=== PATIENT | male | born 1945 | race Caucasian/White ===

== ENCOUNTER → 2017-10-28 | Outpatient (CLI) | payer MEDICARE ==
[~2017-10-28] MED LIST: ACETAM PO; BABY ASPIRIN81 MG PO; CALCIUM D3; GADOBENATE DIMEGLUMINE 1 ML IV ONE; HYDROCHLOROTHIA25 MG PO; HYDROCODONE PO; IOPAMIDOL 300 MG/ML 15ML VIAL IT ONE; METOPROLOL TAR100 MG PO; MULTIVITAMIN; PIROXICAM20 MG PO; STOOL SOFTENER100 M1 PO; VICODIN 5-5001 EACH PO
[2017-10-28 08:23] LABS: BLOOD UREA NITROGEN 15 mg/dL (7-26); BUN/CREATININE RATIO 15 (6-25); CREATININE, SERUM 1.02 mg/dL (0.72-1.25); EST GLOMERULAR FILTRATION RATE > 60 ML/MIN (60-)
--- NOTE | 2017-10-28 11:37 | Diagnostic Imaging Report ---
TECHNIQUE: Magnetic resonance imaging of the LEFT SHOULDER was performed after intra-articular injection of contrast. COMPARISON: None available. HISTORY: Pain FINDINGS: MUSCLES AND TENDONS: Rotator Cuff: Tendons: Full thickness tear of the supraspinatus from the humeral insertion. Additional partial-thickness articular sided tearing extending into the infraspinatus tendon with retraction of the deep fibers approximately 2.5 cm. Muscles: No focal muscle atrophy. Biceps Tendon: The long head of the biceps tendon is within the bicipital groove. Fluid around the tendon secondary to the arthrogram. GLENOHUMERAL JOINT: Posterior subluxation of the humeral head. Glenoid Labrum: Superior and posterior labral tearing. Articular Cartilage: High-grade cartilage loss AC JOINT AND ACROMION: No hypertrophic degenerative changes of the acromioclavicular joint. Subacromial spurring. Bone: No focal or infiltrative bone marrow replacing abnormality. No acute fracture. Soft Tissues: Otherwise, the soft tissues appear unremarkable. IMPRESSION: Full-thickness tear of the anterior supraspinatus from the humeral insertion. No atrophy. 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 Signed by: Dr. Keon Kelley M.D. on 10/28/2017 11:33 AM
--- NOTE | 2017-10-28 11:50 | Diagnostic Imaging Report ---
PROCEDURE:INJECTION ARTHROGRAM SHOULDER COMPARISON:None. INDICATIONS:Left shoulder pain. FINDINGS:The patient was placed supine on the fluoroscopy table. The left shoulder was prepped and draped in the usual sterile fashion. 1% lidocaine was infused into the subcutaneous tissues for local anesthesia. Utilizing direct fluoroscopic guidance, a 25 gauge spinal needle was advanced into the left glenohumeral joint. 5 cc of Isovue-200 M. were infused to confirm proper position within the glenohumeral joint. 10 cc of sterile saline with Magnevist 0.1 mg were infused. Upon completion of the procedure, the needle was removed. The contrast was mobilized within the joint space utilizing passive range of motion. A sterile dressing was applied. The patient tolerated the procedure well. Patient was transferred to the MRI suite for further imaging in stable unchanged condition. CONCLUSION:Successful fluoroscopically guided contrast injection into the left shoulder for an MRI arthrogram. Dictated by: Prabhakar Gudino M.D. on 10/28/2017 at 11:50 Electronically approved by: Prabhakar Gudino M.D. on 10/28/2017 at 11:50
== END ==
LOC: DX 07:24
PROVIDERS: ATTEND Specialist
DX: S43.432D Superior glenoid labrum lesion of left shoulder, subsequent encounter (principal)
CPT/HCPCS: 23350; 36415; 73222; 77002; 82565; 84520; Q9967

== ENCOUNTER → 2019-02-13 | Outpatient (CLI) | payer MEDICARE ==
[~2019-02-13] MED LIST changes: +ALLOPURINOL100 MG PO; +ALPRAZOLAM0.25 MG PO; +ATORVASTATIN CA20 MG PO; +CALCIUM CARB PO; +CLOPIDOGREL75 MG PO; +DICLOFENAC POTA50 MG PO; +DOCUSATE SODIU100 MG PO; -GADOBENATE DIMEGLUMINE 1 ML IV ONE; -IOPAMIDOL 300 MG/ML 15ML VIAL IT ONE; +ISOSORBIDE MONO20 MG PO; +LORATADINE10 MG PO; +LOSARTAN POTAS100 MG PO; +MELATONIN3 MG PO; +METOPROLOL SUCC50 MG PO; +METRONIDAZOLE GEL TOP; +PANTOPRAZOLE SO40 MG PO; +REGADENOSON 0.4 MG/5 ML SYR IV ONE; +VITD PO
--- NOTE | 2019-02-17 13:11 | Myoview Stress Test ---
DATE OF STUDY: 02/13/2019 11:04:00 Stress Test - Treadmill ONLY Thank you, Dr. Shaji Staton for this nuclear interpretation consultation. This stress test is supervised by Dr. Shaji Staton. Nuclear gated myocardial perfusion scan performed as per protocol at Nuclear Medicine Lab at [facility]. Lexiscan injected 0.4 mg intravenously stress agent. Myoview injected 11 mCi for resting protocol and 33 mCi for stress protocol. IMPRESSION: 1. Inferior wall scar noted. 2. Left ventricular ejection fraction 55%. Abnormal study with inferior wall scar. MD YASSINE Monsivais/GENL /[id number]
== END ==
LOC: NM 10:51
PROVIDERS: ATTEND Internal Medicine Cardiovascular Disease
DX: I25.119 Atherosclerotic heart disease of native coronary artery with unspecified angina pectoris (principal)
CPT/HCPCS: 78452; 93017; A9502; J2785

== ENCOUNTER 2019-02-26 09:53 | Observation (INO) | payer MEDICARE ==
[~2019-02-26] VITALS: Ht 179.1 cm; Wt 130.2 kg
[2019-02-26] VITALS (9 sets, daily range): BP systolic 97–139; BP diastolic 59–76
[~2019-02-26 09:53] MED LIST changes: -REGADENOSON 0.4 MG/5 ML SYR IV ONE
--- OUTSIDE RECORDS SUMMARY | 2019-02-26 10:09 | XMS REPORT ---
Author Author [facility] Address Unknown Phone Unavailable Care Team Providers Care Manager Sign Name Role Phone GELY HARGROVE Unavailable Unavailable ANA RODRIGUEZ Unavailable Unavailable Payers Payer Name Policy Type Policy Number Effective Date Expiration Date Problems This patient has no known problems. Allergies, Adverse Reactions, Alerts Allergy Name Allergy Type Status Severity Reaction(s) Onset Date Inactive Date Treating Clinician Comments No Known Allergies DA Active U 2016-08-04 00:00:00 Medications This patient has no known medications. Results Test Description Test Time Test Comments Text Results Atomic Results Result Comments Stress Test - Treadmill ONLY 2019-02-17 11:42:00 [place] [address] Patient Name : RAMIREZ DAVID MR #: [id number] : 1945 Age/Sex: 73/M Adm Physician : GELY HARGROVE MD Admit Date : 02/13/19 [facility] : [facility] Room[facility]Bed : REPORT: Myoview Stress Test DATE OF STUDY: 02/13/2019 11:04:00 Stress Test - Treadmill ONLY Thank you, Dr. Gely Hargrove for this nuclear interpretation consultation. This stress test is supervised by Dr. Gely Hargrove. Nuclear gated myocardial perfusion scan performed as per protocol at Nuclear Medicine Lab at [facility]. Lexiscan injected 0.4 mg intravenously stress agent. Myoview injected 11 mCi for resting protocol and 33 mCi for stress protocol. IMPRESSION: 1. Inferior wall scar noted. 2. Left ventricular ejection fraction 55%. Abnormal study with inferior wall scar. Tim Nunn MD PVJoe/ISMAEL /[id number] Signature Date Dictated By: TIM NUNN MD Transcribed By: ISMAEL on 02/17/19 <Electronically signed by TIM NUNN MD><<Signature on File>>02/24/19 6142 COPY TO: MRI SHOULDER LEFT W [place] [address] Patient Name: RAMIREZ DAVID MR #: [id number] : 1945 Age/Sex: 72/M Req #: [id number] Adm Physician: Ordered by: ANA RODRIGUEZ MD Report #: [id number] Location: DX Room/Bed: Procedure: [id number] MRI/MRI SHOULDER LEFT W Exam Date: Exam Time: REPORT STATUS: Signed TECHNIQUE: Magnetic resonance imaging of the LEFT SHOULDER was performed after intra-articular injection of contrast. COMPARISON: None available. HISTORY: Pain FINDINGS: MUSCLES AND TENDONS: Rotator Cuff: Tendons: Full thickness tear of the supraspinatus from the humeral insertion. Additional partial-thickness articular sided tearing extending into the infraspinatus tendon with retraction of the deep fibers approximately 2.5 cm. Muscles: No focal muscle atrophy. Biceps Tendon: The long head of the biceps tendon is within the bicipital groove. Fluid around the tendon secondary to the arthrogram. GLENOHUMERAL JOINT: Posterior subluxation of the humeral head. Glenoid Labrum: Superior and posterior labral tearing. Articular Cartilage: High-grade cartilage loss AC JOINT AND ACROMION: No hypertrophic degenerative changes of the acromioclavicular joint. Subacromial spurring. Bone: No focal or infiltrative bone marrow replacing abnormality. No acute fracture. Soft Tissues: Otherwise, the soft tissues appear unremarkable. IMPRESSION: Full-thickness tear of the anterior supraspinatus from the humeral insertion. No atrophy. 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 Signed by: Dr. Merry Valdes M.D. on 10/28/2017 11:33 AM Dictated By: MERRY VALDES MD 1133 Transcribed By: RAJESH on 10/28/17 1133 COPY TO: ANA RODRIGUEZ MD FLURO GUIDE NEEDLE PLRAMIREZ/LOC DWAYNE [place] [address] Patient Name: RAMIREZ DAVID MR #: [id number] : 1945 Age/Sex: 72/M Req #: [id number] Adm Physician: Ordered by: ANA RODRIGUEZ MD Report #: [id number] Location: DX Room/Bed: Procedure: [id number] DX/FLURO GUIDE NEEDLE PLMT/LOC DE Exam Date: Exam Time: REPORT STATUS: Signed PROCEDURE: INJECTION ARTHROGRAM SHOULDER COMPARISON: None. INDICATIONS: Left shoulder pain. FINDINGS: The patient was placed supine on the fluoroscopy table. The left shoulder was prepped and draped in the usual sterile fashion. 1% lidocaine was infused into the subcutaneous tissues for local anesthesia. Utilizing direct fluoroscopic guidance, a 25 gauge spinal needle was advanced into the left glenohumeral joint. 5 cc of Isovue-200 M. were infused to confirm proper position within the glenohumeral joint. 10 cc of sterile saline with Magnevist 0.1 mg were infused. Upon completion of the procedure, the needle was removed. The contrast was mobilized within the joint space utilizing passive range of motion. A sterile dressing was applied. The patient tolerated the procedure well. Patient was transferred to the MRI suite for further imaging in stable unchanged condition. CONCLUSION: Successful fluoroscopically guided contrast injection into the left shoulder for an MRI arthrogram. Dictated by: Gregorio Mancini M.D. on 10/28/2017 at 11:50 Electronically approved by: Gregorio Mancini M.D. on 10/28/2017 at 11:50 Dictated By: GREGORIO MANCINI MD 1150 Transcribed By: BRIELLE on 10/28/17 1150 COPY TO: ANA RODRIGUEZ MD INJECTION ARTHROGRAM SHOULDER [place] [address] Patient Name: RAMIREZ DAVID MR #: [id number] : 1945 Age/Sex: 72/M Req #: [id number] Adm Physician: Ordered by: ANA RORDIGUEZ MD Report #: [id number] Location: DX Room/Bed: Procedure: [id number] IR/INJECTION ARTHROGRAM SHOULDER Exam Date: 10/28/17 Exam Time: 0850 REPORT STATUS: Signed PROCEDURE: INJECTION ARTHROGRAM SHOULDER COMPARISON: None. INDICATIONS: Left shoulder pain. FINDINGS: The patient was placed supine on the fluoroscopy table. The left shoulder was prepped and draped in the usual sterile fashion. 1% lidocaine was infused into the subcutaneous tissues for local anesthesia. Utilizing direct fluoroscopic guidance, a 25 gauge spinal needle was advanced into the left glenohumeral joint. 5 cc of Isovue-200 M. were infused to confirm proper position within the glenohumeral joint. 10 cc of sterile saline with Magnevist 0.1 mg were infused. Upon completion of the procedure, the needle was removed. The contrast was mobilized within the joint space utilizing passive range of motion. A sterile dressing was applied. The patient tolerated the proc edure well. Patient was transferred to the MRI suite for further imaging in stable unchanged condition. CONCLUSION: Successful fluoroscopically guided contrast injection into the left shoulder for an MRI arthrogram. Dictated by: Gregorio Mancini M.D. on 10/28/2017 at 11:50 Electronically approved by: Gregorio Mancini M.D. on 10/28/2017 at 11:50 Dictated By: GREGORIO MANCINI MD 1150 Transcribed By: BRIELLE on 10/28/17 1150 COPY TO: ANA RODRIGUEZ MD
[2019-02-26] MEDS ORDERED: LORAZEPAM INJ 2 MG/ML VIAL ONE (10:31)
[2019-02-26] MEDS ORDERED: FAMOTIDINE 20 MG TAB ONE (10:32)
[2019-02-26] MEDS ORDERED: FENTANYL CITRATE/PF 100MCG/2 ML INJ ONE (12:55)
[2019-02-26] MEDS ORDERED: MIDAZOLAM HCL 2 MG/2 ML VIAL ONE (12:55)
[2019-02-26] MEDS ORDERED: LIDOCAINE HCL 2% LOCAL 20 ML VIAL ONE (12:55)
[2019-02-26] MEDS ORDERED: SODIUM CHLORIDE 0.9% 1000ML 1,000 ML ONE (12:56)
[2019-02-26] MEDS ORDERED: IOPAMIDOL 370 MG/ML 200 ML INFUS..BTL INJ ONE (12:56)
[2019-02-26] MEDS ORDERED: HEPARIN SOD/SOD CHLORIDE 2,000 ML ONE (12:56)
[2019-02-26] MEDS ORDERED: CLONIDINE HCL 0.1 MG TAB ONE (15:05)
--- NOTE | 2019-02-26 15:30 | NUR ---
recd pt from mobile lab technician via stretcher aaox3,drsg to lt groin cdI intact,no bleeding noted ,soft to touch.vs-137/74,70,20,96.7
[2019-02-26] MEDS ORDERED: CLONIDINE HCL 0.1 MG TAB PO PRN (16:15)
[2019-02-26] MEDS ORDERED: HYDROCODONE/APAP 5MG-325MG TAB PO PRN (16:15)
--- NOTE | 2019-02-26 19:00 | NUR ---
Patient visited in room during nursing rounds. Patient alert and oriented x3. S/P left heart catheterization. Dressing on left groin (2x2 gauze with tegaderm) intact, clean and dry. Site feels soft and no hematoma noted. Pt laying flat in bed till 2100 per protocol and MD (Dr. Staton) orders. Will call Dr. Staton after 2100 to report pt current condition and to obtain possible discharge orders. Call banks within reach. Will monitor pt closely.
--- NOTE | 2019-02-26 20:00 | NUR ---
Pt resting in bed. V/S stable. No distress or discomfort noted.
--- NOTE | 2019-02-26 21:10 | NUR ---
Patient in stable condition. Bed rest done and pt got up and out of bed to use restroom. Pt states he feels fine. Dressng on incision site (left groin) appear clean and dry. Will page Dr. Staton to obtain possible d/c orders.
--- NOTE | 2019-02-26 21:30 | NUR ---
Received call back from Dr. Staton and informed MD of patient current condition (stable and in no pain or discomfort). specifically states pt ok to go home as long as patient as much as possible would keep his left leg rested and straight in bed or in recliner chair or sofa till 8AM tomorrow (02/27/19). stated ok to continue all home medications and would like to see pt at his clinic one week from today (i.e. Mar 05, 2019).
--- NOTE | 2019-02-26 22:06 | NUR ---
Pt signed discharge papers and understood discharge instructions (Care of incision site, call tomorrow Dr. Staton to set up appointment in 1 week). Pt escorted via wheelchair in stable condition. Pt went home via private vehicle with friend (Davi).
--- NOTE | 2019-02-27 04:38 | Operative Report ---
DATE OF PROCEDURE: 02/26/2019 SURGEON: Shaji Staton MD DIAGNOSES: 1. Coronary artery disease with angina pectoralis and abnormal Lexiscan study. 2. Hypertension. 3. Diabetes mellitus. INDICATIONS: This 73-year-old patient developed recent onset of resting nocturnal and exertional angina pectoralis and chest pain syndrome. He also had episodes of anxiety and increased stress, which was treated by Dr. Burks with Xanax and this helped the patient with his anxiety and stress syndrome symptoms. Dr. Burks referred the patient kindly to me for evaluation and performed nuclear stress test, which was abnormal and the patient is now admitted for diagnostic cardiac catheterization. The patient had previous intervention with placement of coronary stent into the left anterior descending branch. PROCEDURE: 1. Selective coronary angiography. 2. Left ventricular angiogram. ANESTHESIA: With local anesthetic to the left groin area and intravenous moderate sedation with 1 mg of Versed and 25 mcg of fentanyl. DESCRIPTION OF PROCEDURE: After usual prepping and draping, the left inguinal area was infiltrated with local lidocaine. The left femoral artery was then punctured percutaneously and a 6-Uzbek arterial sheath was placed in a modified Seldinger technique. Selective cardiac angiography was performed by using modified Magalie catheter. A 6-Uzbek angled pigtail catheter was utilized for recording of hemodynamics and left ventricular angiogram in the 30-degree SOLARES projection. The pigtail catheter was then also utilized for abdominal arthrography by placing it at the renal level. After completion of procedure, a diagnostic contrast injection was made in the left groin area which, however, indicated that a closure devise is not applicable since the takeoff of the profunda branch was right at the site of cannulation of left femoral artery. Therefore, manual compression was applied with using hemostatic patch and after adequate hemostasis was achieved, dressing was applied and the patient transferred to the observation area in stable condition. There were no complications. The procedure was well tolerated. FINDINGS OF THE CARDIAC CATHETERIZATION: The left ventricular pressure was 138 mmHg. The aortic pressure was 140/78 with a mean of 110 mmHg. There was no gradient across the aortic valve. The left ventricular antacid pressure was elevated with 16, peaking at 28 mmHg. The left main coronary artery showed about 20% eccentric plaque at the bifurcation and also was calcified as was the proximal LAD, which also had about 20% ostial stenosis. The previously placed stent in the mid LAD was fully patent without any evidence of stenosis. The 1st diagonal branch was large and the 2nd diagonal branch was of medium size. The left circumflex artery also showed some calcified plaques, but was large and did not show any stenosis. The right coronary artery also showed extensive calcifications and diffuse plaques amounting to about 10% to 20% stenosis along the proximal and midportion and about a certain percent stenosis in the distal portion. The posterior descending branch did not show any stenosis. The left ventricular angiogram showed a normal size ventricle with normal ejection fraction of 60%. There was evidence of a dilated mitral anulus and also evidence of mitral valve prolapse, but there was no mitral regurgitation as well as evidence of extensive calcification in the area of the aortic knob. The abdominal aortogram showed normal size and normal takeoff of the right renal artery. The left renal artery was displaced downward in the proximal 3rd of the infrarenal abdominal aorta. The artery was of a medium size caliber, but did not show any stenosis. The infrarenal abdominal aorta and the common iliacs had some atherosclerotic plaques, but no stenosis. The left common iliac was somewhat tortuous. IMPRESSION: 1. Extensive calcific arteriosclerosis with mild stenotic areas, but patent stent in the mid LAD. 2. Normal left ventricular ejection fraction with left ventricular dysfunction as indicated by an elevated left ventricular end-diastolic pressure 16, peaking at 28 mmHg. 3. Dilated mitral anulus and mitral valve prolapse. 4. Calcification of the aortic knob. The findings of the procedure were discussed in detail with the patient and he was again instructed about low-cholesterol weight reduction diet and to continue his home medication. He will be observed and released after he completes his bedrest and shows normal vital signs and to continue to rest at home as he was instructed. Shaji Staton MD [facility]/MODL /[id number] cc: Frank Burks MD
== END 2019-02-26 22:06 | disposition home or self-care (01) ==
LOC: CATH LAB 09:53 → CATH LAB V 15:48 → MED/SURG3 16:06
PROVIDERS: ADMIT Internal Medicine Cardiovascular Disease; ATTEND Internal Medicine Cardiovascular Disease
DX: I25.118 Atherosclerotic heart disease of native coronary artery with other forms of angina pectoris (principal); I10 Essential (primary) hypertension; Z68.41 Body mass index [BMI] 40.0-44.9, adult; E11.9 Type 2 diabetes mellitus without complications; I34.1 Nonrheumatic mitral (valve) prolapse; F41.9 Anxiety disorder, unspecified; K21.9 Gastro-esophageal reflux disease without esophagitis
CPT/HCPCS: 75625; 93458; G0378; J2001; J2060; J2250; J3010; J7030; Q9967

== ENCOUNTER → 2019-10-01 | Outpatient (CLI) | payer MEDICARE ==
--- NOTE | 2019-10-01 12:28 | Diagnostic Imaging Report ---
EXAMINATION: MRI cervical spine without contrast HISTORY: 74-year-old male with neck pain for approximately 3 weeks COMPARISON STUDIES: None TECHNIQUE: Sagittal T1, T2 and IR, axial T2 and axial gradient echo FINDINGS: Alignment: Normal lordosis. Levoconvex curvature of the spine which may be secondary to patient positioning. Grade 1 anterolisthesis of C3-C4 which measures approximately 0.3 cm. Cervicomedullary junction: No abnormalities. Patent foramen magnum. Soft tissues: No T2 hyperintense inflammatory changes. Spinal cord: Questionable T2 hyperintensity within the cervical spinal cord at the level of C5, only seen on sagittal stair, which is likely artifactual, similar questionable T2 hyperintensities at the level of C2 on C3, again without correlation in any other sequence. Otherwise normal in size and signal from the foramen magnum through T1. Vertebrae: Chronic endplate degenerative changes from C3 to C6. Otherwise normal in height and signal intensity. No fractures, infection or neoplasm. Degenerative changes: Moderate disc height loss at C4-C5 with mild disc height loss at C5-C6. C2-C3: Uncovertebral and facet arthrosis minimally on the left. No stenoses C3-C4: Disc osteophyte formation, uncovertebral and facet arthroses mainly on the left side. Moderate left foraminal stenoses. C4-C5: Asymmetric right disc osteophyte formation, bilateral uncovertebral and facet arthrosis. Severe right foraminal stenosis. C5-C6: Disc osteophyte complex formation, bilateral uncovertebral and facet arthrosis. Mild bilateral foraminal narrowing. C6-C7: Minimal disc bulge, bilateral uncovertebral and facet processes. No significant canal or foraminal stenoses. C7-T1: Bilateral facet arthrosis worse on the right. No canal or foraminal stenoses. IMPRESSION: 1. Grade 1 degenerative anterolisthesis of C3 on C4. 2. Multilevel spondylosis without significant spinal canal stenoses. 3. Moderate degenerative foraminal stenosis on the left at C3-C4, severe on the right at C4-C5 and mild bilaterally at C5-C6. Signed by: Dr. Kathleen Bravo M.D. on 10/01/2019 1:23 PM
== END ==
LOC: MRI 10:24
PROVIDERS: ATTEND Specialist
DX: M13.88 Other specified arthritis, other site (principal)
CPT/HCPCS: 72141

== ENCOUNTER 2022-02-19 17:50 | Emergency (ER) | payer MEDICARE, OTHER ==
[~2022-02-19] VITALS: Ht 180.3 cm; Wt 136.1 kg
== END 2022-02-19 22:08 | disposition home or self-care (01) ==
LOC: ER 18:04
DX: S22.41XA Multiple fractures of ribs, right side, initial encounter for closed fracture (principal); W01.0XXA Fall on same level from slipping, tripping and stumbling without subsequent striking against object, initial encounter; Y93.01 Activity, walking, marching and hiking; Y92.89 Other specified places as the place of occurrence of the external cause; I10 Essential (primary) hypertension; F41.9 Anxiety disorder, unspecified; Z85.51 Personal history of malignant neoplasm of bladder; Z96.641 Presence of right artificial hip joint; Z96.653 Presence of artificial knee joint, bilateral
CPT/HCPCS: 71250; 74176; 99283